=== PATIENT | female | born 1955 | race Caucasian/White ===

== ENCOUNTER 2024-09-13 14:14 | Observation (INO) | payer MEDICARE, SELFPAY ==
[2024-09-13 14:17] VITALS: BP 170/96; PULSE 95; RESP 18; TEMP 36.2; O2SAT 98; BMI 25.6
--- NOTE | 2024-09-13 14:47 | ED_ITS ---
HPI - General Adult General Chief complaint: Eye Problems Stated complaint: eye complaints Time Seen by Provider: 09/13/24 14:41 History of Present Illness HPI narrative: friday went to urgent care for pressure in ear and face. friday has pressure around R eye, R eye drooping, hard to focus. called dr. aldridge and told to go to ED. 68-year-old woman presenting to the emergency department with concern of right- sided facial pressure and ptosis of her eyelid. Recommended to be further evaluated in the emergency department. She has not noticed any lesions/rash. Initial symptom occurring 3 days ago was a sensation of pressure in her mid forehead into the right a little that she would associate with sinuses/allergies. This seemed to get a little worse the next day. Following day than also noted some drooping of her right eye. Increasing pressure over t he right maxillary area she says and a sense of burning which has lessened now. Symptoms are definitely more intensified when she leans forward which also exacerbates a diplopia. Related Data Home Medications ?Medication ?Instructions ?Recorded ?Confirmed rosuvastatin 5 mg tablet 5 mg PO DAILY 09/10/24 09/13/24 Previous Rx's ?Medication ?Instructions ?Recorded amoxicillin 600 mg-potassium 7.3 ml PO BID 7 days #102.2 mL 09/13/24 clavulanate 42.9 mg/5 mL oral suspension Allergies Allergy/AdvReac Type Severity Reaction Status Date / Time cefaclor [From [facility]] Allergy Verified 09/10/24 11:49 Review of Systems 2 Status of ROS: Reports: 6 or more systems reviewed and unremarkable except as noted in History and below PFSH [facility] Social History Smoking Status: Never smoker Do you use any of these nicotine containing products: None How often do you have a drink containing alcohol: never How often do you have six or more drinks on one occasion: Never AUDIT-C Alcohol total score: 0 Non-prescribed substance use: denies use service: No Exam Narrative: Exam Narrative: Pleasant. Of good energy. Skin is warm dry without lesion/rash. Clearly with ptosis of her right eyelid. She is able to spontaneously elevate this however with effort. Does not appear to have weakness of her right face. No sensory deficits. Limited medial movement of her right eye and maybe a little bit superiorly as well. Strabismus is noted. Pupils are equal reactive to light accommodation though the right pupil seems just a little sluggish relative to the left. No swellings or erythema. Not particularly tender to palpation about her face. Neck is supple without masses or lymphadenopathy Oropharynx is unremarkable. Ear canal, ear without lesions. Heart in mildly elevated rate and regular rhythm without murmur rub or gallop and lungs are clear. Const: Vital Signs, click to edit/add: Vital Signs - 24 hr 09/13/24 14:17 Temperature 97.1 F L Pulse Rate [Pulse Oximeter] 95 Respiratory Rate 18 Blood Pressure [Ri ght Upper Arm] 170/96 H Pulse Oximetry 98 Oxygen Delivery Me thod Room Air Documenting provider has reviewed patient's vital signs: yes Course Vital Signs Vital signs: Initial Vital Signs Temperature 97.1 F L 09/13/24 14:17 Temperature Source Temporal Artery Scan 09/13/24 14:17 Pulse Rate 95 09/13/24 14:17 Respiratory Rate 18 09/13/24 14:17 Blood Pressure 170/96 H 09/13/24 14:17 Blood Pressure Mean 120 H 09/13/24 14:17 Pulse Oximetry 98 09/13/24 14:17 Oxygen Delivery Method Room Air 09/13/24 14:17 Vital Signs Temperature 97.1 F L 09/13/24 14:17 Pulse Rate 95 09/13/24 14:17 Respiratory Rate 18 09/13/24 14:17 Blood Pressure 170/96 H 09/13/24 14:17 Pulse Oximetry 98 09/13/24 14:17 Oxygen Delivery Method Room Air 09/13/24 14:17 Temperature 97.1 F L 09/13/24 14:17 Pulse Rate 95 09/13/24 14:17 Respiratory Rate 18 09/13/24 14:17 Blood Pressure 170/96 H 09/13/24 14:17 Pulse Oximetry 98 09/13/24 14:17 Oxygen Delivery Method Room Air 09/13/24 14:17 Medical Decision Making MDM Narrative Medical decision making narrative: Does appear to have a palsy affecting the medial rectus of the right eye and ptosis. 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 Puzzling is the discomfort as reported over the face. Without more broad motor affect does not appear to be Boone's palsy. No lesions to suggest Jennyfer Atkins. Differential does include CVA, viral etiology, vascular dissection, Susan's, other brain/brainstem lesion/infection. Probably viral in etiology with improvement in symptoms in 4 weeks or so. Did discuss this with Neurology, Stroke Neuro on-call for best test. Ordering recommended imaging. If not visualized here would consider CTA of neck and imaging of chest. Handing off laboratory evaluation and imaging results at change of shift. Medical Records Medical records reviewed: Yes I reviewed the patient's medical records Lab Data Lab results reviewed: Yes I reviewed the patient's lab results Labs: Lab Results 09/13/24 Range/Units 16:10 WBC 8.34 (4.50-11.00) K/uL RBC 4.78 (4.00-5.20) m/uL Hgb 13.9 (12.0-16.0) gm/dL Hct 41.6 (33.0-51.0) % MCV 87 (80-100) fL MCH 29 (26-34) pg MCHC 33 (32-36) gm/dL RDW Coeff of Cezar 12.7 (11.5-15.5) % Plt Count 206 (140-440) K/uL Neut % (Auto) 61.4 (42.0-72.0) % Lymph % (Auto) 26.7 (20-44) % [place] % (Auto) 9.8 (0.0-11.0) % Eos % (Auto) 1.2 (0.0-7.0) % Baso % (Auto) 0.4 (0.0-3.0) % Neut # (Auto) 5.12 (1.7-7.0) K/uL Lymph # (Auto) 2.23 (0.90-2.90) K/uL [place] # (Auto) 0.80 (0.00-0.90) K/UL Eos # (Auto) 0.10 (0.00-0.50) K/uL Baso # (Auto) 0.03 (0.00-0.30) K/uL Abs Immat Gran (auto) 0.04 (0.00-0.30) K/uL Imm/Tot Granulo (auto) 0.5 % Discharge Plan Discharge Prescriptions: No Action rosuvastatin 5 mg tablet 5 mg PO DAILY amoxicillin-pot clavulanate 600-42.9 mg/5 mL suspension for reconstitution 7.3 ml PO BID 7 Days Qty: 102.2 0RF Follow Up/Referrals: Natalie Shah MD [Primary Care Provider] -
--- NOTE | 2024-09-13 15:39 | CRLHL7_ITS ---
For Patients: As a result of the Century Cures Act, medical imaging exams and procedure reports are released immediately into your electronic medical record. You may view this report before your referring provider. If you have questions, please contact your health care provider. INDICATION: Right-sided facial pressure. Ptosis. TECHNIQUE: MRI brain: Multiplanar multisequence MR imaging of the brain and orbits prior to and following intravenous contrast. MRV head: T1 and phase contrast imaging. COMPARISON: None. FINDINGS: MRI brain: The extraocular muscles and lacrimal glands are symmetric in size and enhancement. No intraorbital mass or edema. No signal abnormality or pathologic enhancement within the optic nerves. No mass effect on the optic chiasm. Globes are symmetric. Mild diffuse cerebral volume loss. No mass effect or midline shift. Scattered and patchy FLAIR hyperintensities in the supratentorial white matter, typical for [id number] chronic microvascular ischemic changes. No intracranial hemorrhage or pathologic extra-axial fluid collection. No diffusion restriction to suggest acute infarction. No pathologic intracranial enhancement. The major arterial flow voids at the skull base are preserved. The globes are symmetric. Mild ethmoid sinus mucosal thickening. Minimal mastoid fluid bilaterally. MRV head: The superior sagittal sinus, straight sinus, transverse sinuses, and sigmoid sinuses are widely patent and without evidence for thrombosis. Internal cerebral veins, basal veins of Negar, and vein of Ezekiel are patent. IMPRESSION: 1. Unremarkable MRI of the orbits. 2. No acute intracranial abnormality. 3. No dural venous sinus thrombosis. 4. Mild to moderate chronic microvascular ischemic changes and mild diffuse cerebral volume loss. Dictated by Petar Stone MD @ 09/13/2024 6:45:27 PM (Electronically Signed)
[2024-09-13 16:19] LABS: Basophils Absolute Auto 0.03 K/uL (0.00-0.30); Basophils Percent Auto 0.4 % (0.0-3.0); Eosinophils Percent Auto 1.2 % (0.0-7.0); Hematocrit 41.6 % (33.0-51.0); Hemoglobin* 13.9 gm/dL (12.0-16.0); Immature Granulocytes Abs Auto 0.04 K/uL (0.00-0.30); Immature Granulocytes Pct Auto 0.5 %; Lymphocytes Absolute Auto 2.23 K/uL (0.90-2.90); Lymphocytes Percent Auto 26.7 % (20-44); Mean Corpuscular HGB Conc 33 gm/dL (32-36); Mean Corpuscular Hemoglobin 29 pg (26-34); Mean Corpuscular Volume 87 fL (80-100); Monocytes Percent Auto 9.8 % (0.0-11.0); Neutrophils Absolute Auto 5.12 K/uL (1.7-7.0); Neutrophils Percent Auto 61.4 % (42.0-72.0); Platelet Count* 206 K/uL (140-440); RDW Coefficient of Variation % 12.7 % (11.5-15.5); Red Blood Count 4.78 m/uL (4.00-5.20); White Blood Count* 8.34 K/uL (4.50-11.00)
[2024-09-13 16:20] LABS: Slide Review Reflex No
[2024-09-13] MEDS: LORazepam 2 MG/ML inj 0.3 MG IVP (16:22)
[2024-09-13 16:32] LABS: Chloride* 102 mmol/L (96-114)
[2024-09-13 16:33] LABS: Potassium* 3.4 mmol/L (3.6-5.1); Sodium* 138 mmol/L (135-149)
[2024-09-13 16:35] LABS: Creatinine* 0.6 mg/dL (0.5-1.5); Est. Creatinine Clearance* 45.16; Estimated Glomerular Filt Rate 98 ml/min
[2024-09-13 16:36] LABS: Anion Gap 10 mEq/L (7-15); Blood Urea Nitrogen* 13 mg/dL (7-30); Carbon Dioxide* 26 mmol/L (20-32); Glucose* 106 mg/dL (60-115)
[2024-09-13 16:37] LABS: Calcium* 10.5 mg/dL (8.4-10.6)
[2024-09-13 16:44] LABS: C Reactive Protein* < 0.5 mg/dL (0.5-1.0)
[2024-09-13 16:50] LABS: SARS PCR* Negative SARS-CoV-2 (Negative)
[2024-09-13 17:24] LABS: Erythrocyte SedimentationRate* 7 mm/hr (2-20)
[2024-09-13 18:04] VITALS: BP 176/103; PULSE 83; RESP 18; O2SAT 99
--- NOTE | 2024-09-13 20:05 | CRLHL7_ITS ---
For Patients: As a result of the Century Cures Act, medical imaging exams and procedure reports are released immediately into your electronic medical record. You may view this report before your referring provider. If you have questions, please contact your health care provider. DATE: 09/13/2024 CLINICAL HISTORY: Patient with right-sided ptosis, miosis, diplopia. TECHNIQUE: Standard helical CT image acquisition through the intracranial circulation following intravenous administration of contrast material with bolus tracking. 2D and 3D MIP images for post-processing were performed and interpreted on an independent workstation and 3D images were permanently archived. COMPARISON: CT same day. FINDINGS: There is no cerebral aneurysm or large vessel occlusion. The right internal carotid artery is normal. The right middle cerebral artery and its branches are normal. The right anterior cerebral artery and its branches are normal. The left internal carotid artery is normal. The left middle cerebral artery and its branches are normal. The left anterior cerebral artery and its branches are normal. The anterior communicating artery is well visualized and appears normal. The right vertebral artery and PICA are normal. The left vertebral artery and PICA are normal. The right vertebral artery is dominant. The basilar artery is patent and appears normal. The right posterior cerebral artery is normal. The left posterior cerebral artery is normal. The visualized venous structures are patent. IMPRESSION: Patent proximal intracranial vasculature without intracranial aneurysms. Please note that all CT scans at this facility use dose modulation, iterative reconstruction, and/or weight-based dosing when appropriate to reduce radiation dose to as low as reasonably achievable. Dictated by Peggy Lauren MD @ 09/14/2024 1:59:35 PM (Electronically Signed)
--- NOTE | 2024-09-13 20:05 | CRLHL7_ITS ---
For Patients: As a result of the Century Cures Act, medical imaging exams and procedure reports are released immediately into your electronic medical record. You may view this report before your referring provider. If you have questions, please contact your health care provider. DATE: 09/13/2024 CLINICAL HISTORY: Patient with right-sided ptosis, miosis, diplopia. TECHNIQUE: Standard helical CT image acquisition of the neck up to the skull base after bolus intravenous contrast enhancement. 2D and 3D MIP images for post-processing were performed and interpreted on an independent workstation and 3D images were permanently archived. COMPARISON: CT same day. FINDINGS: The origins of the great vessels from the aortic arch are patent. The origin of the right vertebral artery is patent. The origin of the left vertebral artery is patent. The common carotid arteries are patent. There is no stenosis at the origin of the right internal carotid artery. There is no stenosis at the origin of the left internal carotid artery. The rest of the cervical segments of the internal carotid arteries are patent up to the skull base, demonstrating mild fibromuscular dysplasia on the left. The right vertebral artery is dominant. The cervical segments of the vertebral arteries are patent up to the skull base. The visualized lung apices are unremarkable. The thyroid gland is unremarkable. The soft tissues of the neck are unremarkable. There are degenerative changes in the cervical spine. IMPRESSION: Patent cervical vasculature. Please note that all CT scans at this facility use dose modulation, iterative reconstruction, and/or weight-based dosing when appropriate to reduce radiation dose to as low as reasonably achievable. Dictated by Peggy Lauren MD @ 09/14/2024 1:57:12 PM (Electronically Signed)
[2024-09-13 22:29] VITALS: BP 149/90; PULSE 92; RESP 18; TEMP 36.7; O2SAT 98
[2024-09-14 00:56] LABS: Appearance CSF Clear (Clear); Color CSF Colorless (Colorless); Glucose, CSF* 57 Mg/dL (40-70); RBC, CSF 0 Cells/uL; Total Protein, CSF 37 Mg/dL (15-45); WBC, CSF 2 Cells/uL
[2024-09-14 01:17] LABS: CSF Mononuclear Cells 0 %; CSF Polynuclear Cells 0 %
[2024-09-14 02:12] VITALS: BP 145/75; PULSE 82; RESP 16; O2SAT 96
[2024-09-14 02:30] VITALS: BP 173/104; PULSE 113; RESP 16; RESP 18; TEMP 36.8; O2SAT 96; BMI 26.3
--- NOTE | 2024-09-14 04:13 | W.PM.TELEH&P ---
Telehealth- H&P: HPI History of Present Illness Time Seen by Provider: 03:30 Date Seen: 09/14/24 Chief complaint: eye complaints Narrative: Lizeth Corral is seen as an Interactive Telehealth visit. Lizeth Corral is [id number] previously healthy history of hyperlipidemia who got her annual flu shot on Friday and on Friday and Friday had a low-grade headache and just felt nonspecifically unwell. On she started noticing that she had some droopiness of her right eyelid but no visual changes. She was seen in urgent care and was told she might have a sinus infection as she has had a lot of sinus pressure but was not treated. On Friday she had more eye lid drooping and worsened on Friday. On Friday morning she noted double vision. Friday she had increased pressure on ongoing diplopia. She felt a little orthostatically lightheaded. She has had no fevers or chills. No current headache. She presented to the emergency room where she was extensively evaluated and found to have a 3rd nerve palsy on exam. Underwent CTA and MRA and MR of the orbits and head and neck without any evidence of intracranial abnormalities or any evidence of disease of the orbits. Case was discussed with on-call teleneurologist by the ER doctor who recommended a telemedicine neuro evaluation in the morning. She is being admitted to observation at this time. Review of Systems Status of ROS: Reports: 6 or more systems reviewed and unremarkable except as noted in History and below PFSH PFS Social History Smoking Status: Never smoker Do you use any of these nicotine containing products: None How often do you have a drink containing alcohol: never How often do you have six or more drinks on one occasion: Never AUDIT-C Alcohol total score: 0 Non-prescribed substance use: denies use service: No Meds Home Medications and Allergies Home Medications ?Medication ?Instructions ?Recorded ?Confirmed ?Type rosuvastatin 5 mg tablet 5 mg PO DAILY 09/10/24 09/13/24 History Allergies Allergy/AdvReac Type Severity Reaction Status Date / Time cefaclor [From [facility]] Allergy Verified 09/10/24 11:49 Exam Narrative Exam Narrative: General: Awake alert oriented resting comfortably no acute distress Head: Is atraumatic, pupils are equal and reactive, she has a loss of right eye adduction and decrease in upward gaze. There does not appear to be a disconjugate gaze at rest. Smile is symmetric other cranial nerves appear normal Neck is supple Chest: Clear to auscultation Cor: Regular rate and rhythm no murmurs Abdomen soft nontender Strength upper lower extremities normal no peripheral edema Const Vital Signs, click to edit/add: Vital Signs - 24 hr 09/13/24 14:17 09/13/24 18:04 09/13/24 22:29 Temperature 97.1 F L 98.1 F Pulse Rate [Left Pulse Oximeter] Pulse Rate [Pulse Oximeter] 95 83 92 Respiratory Rate 18 18 18 Blood Pressure [Right Arm] Blood Pressure [Right Upper Arm] 170/96 H 176/103 H 149/90 H Pulse Oximetry 98 99 98 Oxygen Delivery Method Room Air Room Air Room Air 09/14/24 02:12 09/14/24 02:30 09/14/24 02:30 Temperature 98.2 F Pulse Rate [Left Pulse Oximeter] 113 H Pulse Rate [Pulse Oximeter] 82 Respiratory Rate 16 16 18 Blood Pressure [Right Arm] 173/104 H Blood Pressure [Right Upper Arm] 145/75 H Pulse Oximetry 96 96 96 Oxygen Delivery Method Room Air Room Air Room Air Hospitalist - H&P: Result Labs Labs: Laboratory Results - last 24 hr 09/13/24 09/14/24 16:10 00:00 WBC 8.34 RBC 4.78 Hgb 13.9 Hct 41.6 MCV 87 MCH 29 MCHC 33 RDW Coeff of Cezar 12.7 Plt Count 206 Neut % (Auto) 61.4 Lymph % (Auto) 26.7 [place] % (Auto) 9.8 Eos % (Auto) 1.2 Baso % (Auto) 0.4 Neut # (Auto) 5.12 Lymph # (Auto) 2.23 [place] # (Auto) 0.80 Eos # (Auto) 0.10 Baso # (Auto) 0.03 Abs Immat Gran (auto) 0.04 Imm/Tot Granulo (auto) 0.5 ESR 7 Sodium 138 Potassium 3.4 L Chloride 102 Carbon Dioxide 26 Anion Gap 10 BUN 13 Creatinine 0.6 Estimated Creat Clear 45.16 Estimated GFR 98 Glucose 106 Calcium 10.5 C-Reactive Protein < 0.5 L CSF Volume 4.0 CSF Appearance Clear CSF Color Colorless CSF WBC 2 CSF RBC 0 CSF Mononuclear Cells 0 CSF Polynuclear WBCs 0 CSF Glucose 57 CSF Total Protein 37 SARS-CoV-2 (PCR) Negative SARS-CoV-2 MRI orbits/face neck Negative Head MRA no acute findings, no venous sinus disease, No cerebral vasculature abn CTA head and neck reportedly negative Assessment and Plan Assessment and plan (1) Cranial nerve III palsy: Status: Acute Plan 68-year-old with 3rd nerve palsy over the last several days. No other evidence of neurologic abnormalities. Extensive imaging does not show any evidence of acute stroke, intraorbital disease or cerebral venous thrombus. Case reviewed with neurologist by ER doctor who recommended overnight observation and a neurologic teleconference in the a.m. Telehealth: Statement Statement Telehealth Visit: Today's History and Physical is provided via interactive telehealth by [place] Pro MD.? Patient is located at [facility].? Provider is located at [facility].? Nursing staff assisted with the patient's exam. The visit being done today meets criteria for a telehealth visit and the patient or patient?s parent/guardian is aware the visit is a telehealth visit. Camera Start Time: 03:30 Camera End Time: 03:49
--- NOTE | 2024-09-14 06:36 | PC.NURSE ---
End of shift [id number]: Alert and oriented x 4, denies any pain this shift but does state that she has pressure under her right eye and above her right eye. Right eyelid drooping, patient has difficultly opening eyelid all the way. Pupils equal and reactive. Smile equal and denies any numbness or tingling to upper or lower extremities. Intermittent double vision to right eye. Denies any head trauma or fall. Vision and drooping of eye started Friday and continued to get progressively worse over the weekend. Ambulates independently. Neuros intact.
[2024-09-14 08:38] VITALS: BP 128/73; PULSE 86; RESP 18; O2SAT 99
--- NOTE | 2024-09-14 10:02 | P.DS_ITS ---
Documented by User: Betty Maldonado PA-C 09/15/24 18:52 DS: Providers Provider Date Seen: 09/14/24 Date of admission: 09/14/24 02:26 Primary care physician: Natalie Shah MD Admitting Clinician: [place] Pro MD Attending Physician on discharge: Betty Maldonado [facility], [facility] Hospitalist DS: Diagnosis Discharge Diagnosis (1) Cranial nerve III palsy: Status: Acute Problem details: With 7 day history of double vision, blurring, decreased focus, heavy upper drooping lid MRA brain and MRI orbits/face/neck unremarkable of the orbits, no acute intracranial abnormality, no dural venous sinus thrombosis, mild to moderate chronic microvascular ischemic changes and mild diffuse cerebral volume loss Lumbar puncture performed, CSF volume 4.0, clear, colorless, WBC 2, protein 37, glucose 57 COVID negative, T palladium pending Admitted overnight for observation without new or worsening symptoms Tele neurology consulted, recommends: - Add on CSF viral panel, myasthenia gravis panel - Aspirin 81 mg/day - F/u with neurology and ophthamology as an outpatient - lipid panel and HgbA1C (2) Hyperlipidemia: Status: Acute Problem details: Continue statin DS: Summary Hospital Course Hospital Course: [age] year old female past medical history significant for hyperlipidemia, lumbar radiculopathy was admitted to the medical floor for observation in setting of cranial nerve 3 palsy. Course of care and details as noted above. No events reported overnight. Tele neurology consulted morning of discharge recommending further testing with add on of CSF viral panel, myasthenia gravis panel, lipid panel and hemoglobin A1c, Aspirin 81 mg/day and outpatient follow- up with neurology and ophthamology. PCP to assist in arranging this. Remainder of chronic medical comorbidities were monitored and managed with home medications. Status at Discharge Functional status at discharge: independent ambulation Overall status at discharge: patient is back to baseline Time Spent with Patient Time attestation: Total time spent providing and/or coordinating discharge services: Time spent: Greater than 30 minutes Exam Narrative: Exam Narrative: PHYSICAL EXAM General: Pleasant, conversant, NAD HEENT: Normocephalic, atraumatic, sclera white, EOMI, oral mucosa moist. No rash or lesions noted Cardiovascular: RRR, S1S2. No pitting edema Pulmonary: CTA bilaterally without rhonchi, rales, expiratory wheezes. No dyspnea Neurological: Alert, answering questions appropriately, right eyelid droop, rig ht EOM lag. No focal findings of extremities Extremities: No gross joint deformity or swelling. AROMI. Neurovascularly intact Skin: Warm, dry. Const: Vital Signs, click to edit/add: Vital Signs - 24 hr 09/13/24 14:17 09/13/24 18:04 09/13/24 22:29 Temperature 97.1 F L 98.1 F Pulse Rate [Left P ulse Oximeter] Pulse Rate [Pulse Oximeter] 95 83 92 Respiratory Rate 18 18 18 Blood Pressure [Ri ght Arm] Blood Pressure [Ri ght Upper Arm] 170/96 H 176/103 H 149/90 H Pulse Oximetry 98 99 98 Oxygen Delivery Me thod Room Air Room Air Room Air 09/14/24 02:12 09/14/24 02:30 09/14/24 02:30 Temperature 98.2 F Pulse Rate [Left P ulse Oximeter] 113 H Pulse Rate [Pulse Oximeter] 82 Respiratory Rate 16 16 18 Blood Pressure [Ri ght Arm] 173/104 H Blood Pressure [Ri ght Upper Arm] 145/75 H Pulse Oximetry 96 96 96 Oxygen Delivery Me thod Room Air Room Air Room Air 09/14/24 08:38 Temperature Pulse Rate [Left P ulse Oximeter] 65 Pulse Rate [Pulse Oximeter] Respiratory Rate 18 Blood Pressure [Ri ght Arm] 128/73 Blood Pressure [Ri ght Upper Arm] Pulse Oximetry 99 Oxygen Delivery Me thod Room Air DS: Data Data Completed and Pending Labs on day of discharge: Labs from last 24 hours 09/14/24 09/13/24 00:00 16:10 WBC 8.34 RBC 4.78 Hgb 13.9 Hct 41.6 MCV 87 MCH 29 MCHC 33 RDW Coeff of Cezar 12.7 Plt Count 206 Neut % (Auto) 61.4 Lymph % (Auto) 26.7 [place] % (Auto) 9.8 Eos % (Auto) 1.2 Baso % (Auto) 0.4 Neut # (Auto) 5.12 Lymph # (Auto) 2.23 [place] # (Auto) 0.80 Eos # (Auto) 0.10 Baso # (Auto) 0.03 Abs Immat Gran (auto) 0.04 Imm/Tot Granulo (auto) 0.5 ESR 7 Sodium 138 Potassium 3.4 L Chloride 102 Carbon Dioxide 26 Anion Gap 10 BUN 13 Creatinine 0.6 Estimated Creat Clear 45.16 Estimated GFR 98 Glucose 106 Calcium 10.5 C-Reactive Protein < 0.5 L CSF Volume 4.0 CSF Appearance Clear CSF Color Colorless CSF WBC 2 CSF RBC 0 CSF Mononuclear Cells 0 CSF Polynuclear WBCs 0 CSF Glucose 57 CSF Total Protein 37 T.pallidum Particle Agg Pending SARS-CoV-2 (PCR) Negative SARS-CoV-2 Preliminary micro results at discharge 09/14/24 00:00 Body Fluid Culture - Preliminary Cerebrospinal Fluid Imaging MRI orbits/face/neck: Attestation: I have reviewed the pertinent imaging results. Radiologist's impression: The extraocular muscles and lacrimal glands are symmetric in size and enhancement. No intraorbital mass or edema. No signal abnormality or pathologic enhancement within the optic nerves. No mass effect on the optic chiasm. Globes are symmetric. Mild diffuse cerebral volume loss. No mass effect or midline shift. Scattered and patchy FLAIR hyperintensities in the supratentorial white matter, typical for [id number] chronic microvascular ischemic changes. No intracranial hemorrhage or pathologic extra-axial fluid collection. No diffusion restriction to suggest acute infarction. No pathologic intracranial enhancement. The major arterial flow voids at the skull base are preserved. The globes are symmetric. Mild ethmoid sinus mucosal thickening. Minimal mastoid fluid bilaterally. MRV head: The superior sagittal sinus, straight sinus, transverse sinuses, and sigmoid sinuses are widely patent and without evidence for thrombosis. Internal cerebral veins, basal veins of Negar, and vein of Ezekiel are patent. IMPRESSION: 1. Unremarkable MRI of the orbits. 2. No acute intracranial abnormality. 3. No dural venous sinus thrombosis. 4. Mild to moderate chronic microvascular ischemic changes and mild diffuse cerebral volume loss. MRA brain: Attestation: I have reviewed the pertinent imaging results. Radiologist's impression: The extraocular muscles and lacrimal glands are symmetric in size and enhancement. No intraorbital mass or edema. No signal abnormality or pathologic enhancement within the optic nerves. No mass effect on the optic chiasm. Globes are symmetric. Mild diffuse cerebral volume loss. No mass effect or midline shift. Scattered and patchy FLAIR hyperintensities in the supratentorial white matter, typical for [id number] chronic microvascular ischemic changes. No intracranial hemorrhage or pathologic extra-axial fluid collection. No diffusion restriction to suggest acute infarction. No pathologic intracranial enhancement. The major arterial flow voids at the skull base are preserved. The globes are symmetric. Mild ethmoid sinus mucosal thickening. Minimal mastoid fluid bilaterally. MRV head: The superior sagittal sinus, straight sinus, transverse sinuses, and sigmoid sinuses are widely patent and without evidence for thrombosis. Internal cerebral veins, basal veins of Negar, and vein of Ezekiel are patent. IMPRESSION: 1. Unremarkable MRI of the orbits. 2. No acute intracranial abnormality. 3. No dural venous sinus thrombosis. 4. Mild to moderate chronic microvascular ischemic changes and mild diffuse cerebral volume loss. CTA neck: Attestation: I have reviewed the pertinent imaging results. Radiologist's impression: The aortic arch has a conventional anatomy. The great vessels remain patent. The common carotid arteries remain patent. The cervical ICA segments remain patent bilaterally. The origins of the common carotid arteries remain patent. Right vertebral dominant system. The cervical vertebral arteries remain patent. The origins of the vertebral arteries remain patent. The visualized thyroid is unremarkable. The visualized lung guillory are clear. PRELIMINARY IMPRESSION: No hemodynamically significant stenoses of the cervical arterial vasculature. Discharge Plan Discharge Disposition: Home, Self-Care Date of Admission: 09/14/24 02:26 Attending Provider on Discharge: Betty Maldonado Primary Care Provider: Natalie Shah Condition: Stable Anticipated Discharge Date/Time: 09/14/24 14:00 Discharge Medications: New aspirin 81 mg capsule 81 mg PO DAILY Qty: 30 2RF Continued rosuvastatin 5 mg tablet 5 mg PO HS amoxicillin-pot clavulanate 600-42.9 mg/5 mL suspension for reconstitution 7.3 ml PO BID 7 Days Qty: 102.2 0RF cyclobenzaprine 10 mg tablet 10 mg PO TID PRN (Reason: muscle spasm) Discharge Orders: Discharge Order (Routine); Ordered 09/14/24 Ordered By: Layla Diop Patient Education: Aspirin (By mouth), Acute Headache (DC), Diplopia (DC) Additional Instructions: Neurology and ophthamology 1-2 weeks. At your follow up with your primary discuss getting these appointments arranged. 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 Problem details: With 7 day history of double vision, blurring, decreased focus, heavy upper drooping lid MRA brain and MRI orbits/face/neck unremarkable of the orbits, no acute intracranial abnormality, no dural venous sinus thrombosis, mild to moderate chronic microvascular ischemic changes and mild diffuse cerebral volume loss Lumbar puncture performed, CSF volume 4.0, clear, colorless, WBC 2, protein 37, glucose 57 COVID negative, T palladium pending Admitted overnight for observation without new or worsening symptoms Tele neurology consulted, recommends: - Add on CSF viral panel, myasthenia gravis panel - Aspirin 81 mg/day - F/u with neurology and ophthamology as an outpatient - lipid panel and HgbA1C (2) Hyperlipidemia: Status: Acute Problem details: Continue statin DS: Summary Hospital Course Hospital Course: [age] year old female past medical history significant for hyperlipidemia, lumbar radiculopathy was admitted to the medical floor for observation in setting of cranial nerve 3 palsy. Course of care and details as noted above. No events reported overnight. Tele neurology consulted morning of discharge recommending further testing with add on of CSF viral panel, myasthenia gravis panel, lipid panel and hemoglobin A1c, Aspirin 81 mg/day and outpatient follow- up with neurology and ophthamology. PCP to assist in arranging this. Remainder of chronic medical comorbidities were monitored and managed with home medications. Discharge Plan Discharge Disposition: Home, Self-Care Date of Admission: 09/14/24 02:26 Attending Provider on Discharge: Betty Maldonado Primary Care Provider: Natalie Shah Condition: Stable Anticipated Discharge Date/Time: 09/14/24 14:00 Discharge Medications: New aspirin 81 mg capsule 81 mg PO DAILY Qty: 30 2RF Continued rosuvastatin 5 mg tablet 5 mg PO HS amoxicillin-pot clavulanate 600-42.9 mg/5 mL suspension for reconstitution 7.3 ml PO BID 7 Days Qty: 102.2 0RF cyclobenzaprine 10 mg tablet 10 mg PO TID PRN (Reason: muscle spasm) Discharge Orders: Discharge Order (Routine); Ordered 09/14/24 Ordered By: Layla Diop Patient Education: Aspirin (By mouth), Acute Headache (DC), Diplopia (DC) Additional Instructions: Neurology and ophthamology 1-2 weeks. At your follow up with your primary discuss getting these appointments arranged. Activity Level: Activity as Tolerated Discharge Diet: Regular Follow Up Appointments: Natalie Shah MD [Primary Care Provider] - 09/21/24 2:45 pm ([facility] for post hospital follow-up.) Forms: [facility] Info Instructions
[2024-09-14 11:45] VITALS: BP 147/73; PULSE 90; RESP 18; O2SAT 97
[2024-09-14 13:20] LABS: Cholesterol* 188 mg/dL (90-199); HDL Cholesterol* 56 mg/dL (>=50); LDL Cholesterol Calculated 107 mg/dL (<100); Triglycerides* 126 mg/dL (40-149)
[2024-09-14 13:59] LABS: Hemoglobin A1C* 5.3 % (0-5.6)
--- NOTE | 2024-09-14 14:04 | PC.NURSE ---
Discharge: Thr patient was informed to come to the ER if she has worsening R sided drop/ weakness and or issues swallowing as they could be symptoms of a stroke. Recommendation was given to follow up with Neuro-ophthalmology. I explained that her primary will send this. All discharge information was reviewed with the patient and her . Ambulated off the unit with all of her belongings. Tanvi COLE BSN
== END 2024-09-14 13:51 | disposition home or self-care (01) ==
LOC: ED 09-14 01:08 → MEDSURG 09-14 02:27
PROVIDERS: Family Medicine; Admitting Provider Internal Medicine; Emergency Provider Emergency Medicine; PCP Internal Medicine; Visit Provider Internal Medicine
DX: H49.01 Third [oculomotor] nerve palsy, right eye (principal); H51.21 Internuclear ophthalmoplegia, right eye; H02.401 Unspecified ptosis of right eyelid; R20.8 Other disturbances of skin sensation; M54.16 Radiculopathy, lumbar region; E78.5 Hyperlipidemia, unspecified; Z79.01 Long term (current) use of anticoagulants; Z11.52 Encounter for screening for COVID-19; Z13.1 Encounter for screening for diabetes mellitus
CPT/HCPCS: 62270; 36415; 70496; 70498; 70543; 70544; 80048; 80061; 82945; 83036; 84157; 85025; 85651; 86140; 87070; 87252; 87635; 89051; 96374; 99284; A9575; G0378; J2060; Q9967